=== PATIENT | male | born 1965 | race Caucasian/White ===

== ENCOUNTER → 2018-03-06 09:55 | Outpatient (CLI) | payer BC, SELFPAY ==
--- NOTE | 2018-03-06 | DI.RAD.S_ITS ---
PROCEDURE: XR SHOULDER RT MIN 2V INDICATIONS: RIGHT AND LEFT SHOULDER PAIN TECHNIQUE: 3 views of the shoulder were acquired. COMPARISON: None. FINDINGS: Bones: No fractures or dislocations. No suspicious bony lesions. Visualized ribs appear intact. Moderate a.c. joint hypertrophy with a moderate undergoing component. Soft tissues: No suspicious soft tissue calcifications. IMPRESSION: Moderate a.c. joint hypertrophy with moderate undergoing component. Otherwise unremarkable right shoulder. Dictated by: Jonathan Swan M.D. on 03/06/2018 at 10:34 Approved by: Jonathan Swan M.D. on 03/06/2018 at 10:36
--- NOTE | 2018-03-06 | DI.RAD.S_ITS ---
PROCEDURE: XR SHOULDER LT MIN 2V INDICATIONS: RIGHT AND LEFT SHOULDER PAIN TECHNIQUE: 3 views of the shoulder were acquired. COMPARISON: None. FINDINGS: Bones: No fractures or dislocations. No suspicious bony lesions. Visualized ribs appear intact. Soft tissues: No suspicious soft tissue calcifications. IMPRESSION: Negative left shoulder Dictated by: Jonathan Swan M.D. on 03/06/2018 at 10:17 Approved by: Jonathan Swan M.D. on 03/06/2018 at 10:34
== END ==
PROVIDERS: PCP Family Medicine; Visit Provider Family Medicine
DX: M25.512 Pain in left shoulder (principal); M25.511 Pain in right shoulder
CPT/HCPCS: 73030

== ENCOUNTER → 2021-08-30 10:02 | Outpatient (CLI) | payer BC, SELFPAY ==
--- NOTE | 2021-08-30 | DI.RAD.S_ITS ---
PROCEDURE: XR KNEE LT 3V INDICATIONS: LEFT KNEE PAIN TECHNIQUE: 3 views of the knee were acquired. COMPARISON: None. FINDINGS: Bones: No fractures or dislocations. No suspicious bony lesions. Minimal medial and patellofemoral compartment narrowing. No erosions. No periarticular osteophytes. Soft tissues: Mild joint effusion. No suspicious soft tissue calcifications. IMPRESSION: Mild effusion. Very minimal osteoarthritic change. Dictated by: Felisa Askew M.D. on 08/30/2021 at 12:37 Approved by: Felisa Askew M.D. on 08/30/2021 at 12:38
== END ==
PROVIDERS: PCP Family Medicine; Referring Provider Family Medicine; Visit Provider Family Medicine
DX: M25.462 Effusion, left knee (principal); M25.562 Pain in left knee
CPT/HCPCS: 73562

== ENCOUNTER → 2021-09-30 16:20 | Outpatient (CLI) | payer BC, SELFPAY ==
--- NOTE | 2021-09-30 | DI.MRI.S_ITS ---
PROCEDURE: MR KNEE LT WO CON INDICATIONS: Pain in left knee TECHNIQUE: Noncontrast sagittal PD fast spin echo and T2 fast spin echo with fat saturation, sagittal 3-D FLASH with fat saturation; coronal T1 spin echo and PD fast spin echo with fat saturation, and axial PD fast spin echo with fat saturation through the knee. COMPARISON: [facility], CR, XR KNEE LT 3V, 08/30/2021, 10:57. FINDINGS: Image quality: Excellent. Menisci: The medial and lateral menisci demonstrate normal morphology and internal signal. The meniscal root ligaments appear intact. Cruciate ligaments: The anterior and posterior cruciate ligaments appear intact. Medial structures: The medial collateral ligament appears intact. Visualized portions of the pes anserinus tendons appear normal. No abnormal bursal fluid. Lateral structures: The lateral collateral ligament, long and short heads of the biceps femoris tendon appear intact. The popliteus tendon appears normal. Iliotibial band appears normal. Anterior structures: The quadriceps and patellar tendons appear intact. Patellar alignment is normal. No femoral trochlear dysplasia or ventral trochlear prominence. No edema in the infrapatellar fat pad. Bones and cartilage: No bone marrow contusions or fractures. There is mild subchondral mid degenerative marrow edema and subchondral cyst formation within the central femoral trochlea, with high-grade overlying articular cartilage loss. Moderate articular cartilage loss diffusely overlies the weight-bearing aspects of the medial femoral condyle and medial tibial plateau. Articular cartilage fibrillation overlies the medial and lateral patellar facets. Joint space: There is physiologic knee joint fluid. No Sandoval's cyst. There is a ganglion cyst at the posterior aspect of the intercondylar notch, spanning roughly 25 mm transverse. Normal appearing synovial plicae are incidentally noted. IMPRESSION: 1. No internal derangement. 2. Tricompartmental osteoarthritis with associated articular cartilage loss. 3. Ganglion cyst at the posterior aspect of the knee joint. Dictated by: Richardson Simons M.D. on 10/03/2021 at 8:30 Approved by: Richardson Simons M.D. on 10/03/2021 at 8:32
== END ==
PROVIDERS: PCP Family Medicine; Referring Provider Family Medicine; Visit Provider Family Medicine
DX: M17.12 Unilateral primary osteoarthritis, left knee (principal); M67.462 Ganglion, left knee; M25.562 Pain in left knee
CPT/HCPCS: 73721